=== PATIENT | female | born 1955 | race Caucasian/White ===

== ENCOUNTER → 2023-05-06 08:37 | Outpatient (REF) | payer BC, SELFPAY | LOC: RAD 08:37 | PROVIDERS: ATTENDING PHYSICIAN Family Medicine | DX: I65.23 Occlusion and stenosis of bilateral carotid arteries (principal) | CPT/HCPCS: 93880 ==

== ENCOUNTER → 2023-06-01 17:08 | Outpatient (REF) | payer BC, MEDICARE, SELFPAY | LOC: WDC 17:08 | PROVIDERS: ATTENDING PHYSICIAN Family Medicine | DX: Z12.31 Encounter for screening mammogram for malignant neoplasm of breast (principal) | CPT/HCPCS: 77063; 77067 ==

== ENCOUNTER → 2023-07-21 06:42 | Outpatient (REF) | payer BC, MEDICARE, SELFPAY | LOC: RAD 06:42 | PROVIDERS: ATTENDING PHYSICIAN Specialist; FAMILY PHYSICIAN Family Medicine | DX: E87.6 Hypokalemia (principal) | CPT/HCPCS: 93922 ==

== ENCOUNTER → 2023-10-03 06:41 | Outpatient (REF) | payer BC, SELFPAY | LOC: RAD 06:41 | PROVIDERS: ATTENDING PHYSICIAN Surgery Vascular Surgery; FAMILY PHYSICIAN Family Medicine | DX: I73.9 Peripheral vascular disease, unspecified (principal) | CPT/HCPCS: 93922; 93925; 93978 ==

== ENCOUNTER → 2023-11-16 06:18 | Day surgery (SDC) | payer BC, SELFPAY | LOC: GI 06:18 | PROVIDERS: ATTENDING PHYSICIAN Internal Medicine Gastroenterology; FAMILY PHYSICIAN Family Medicine | DX: D12.0 Benign neoplasm of cecum (principal); D12.3 Benign neoplasm of transverse colon; D12.4 Benign neoplasm of descending colon; K63.5 Polyp of colon; R21 Rash and other nonspecific skin eruption; Z86.010 Personal history of colon polyps; Z98.890 Other specified postprocedural states | CPT/HCPCS: 45385; 88305 ==

== ENCOUNTER → 2023-11-22 11:01 | Outpatient (REF) | payer BC, SELFPAY | LOC: RAD 11:01 | PROVIDERS: ATTENDING PHYSICIAN Family Medicine | DX: M54.16 Radiculopathy, lumbar region (principal) | CPT/HCPCS: 72110 ==

== ENCOUNTER → 2024-01-16 17:01 | Outpatient (REF) | payer BC, SELFPAY | LOC: RAD 17:01 | PROVIDERS: ATTENDING PHYSICIAN Family Medicine | DX: Z87.891 Personal history of nicotine dependence (principal) | CPT/HCPCS: 71271 ==

== ENCOUNTER → 2024-04-30 12:49 | Outpatient (REF) | payer BC, SELFPAY | LOC: RAD 12:49 | PROVIDERS: ATTENDING PHYSICIAN Surgery Vascular Surgery; FAMILY PHYSICIAN Family Medicine | DX: I73.9 Peripheral vascular disease, unspecified (principal) | CPT/HCPCS: 93880; 93922; 93925; 93978 ==

== ENCOUNTER 2024-05-29 07:28 | Outpatient (RCR) | payer BC, SELFPAY ==
[2024-05-29 07:55] VITALS: BP 157/78
[2024-05-29] MEDS: SODIUM BICARBONATE 1150 MEQ IV (08:07)
== END 2024-06-11 23:59 | disposition home or self-care (01) ==
LOC: OID 07:28
PROVIDERS: ATTENDING PHYSICIAN Surgery Vascular Surgery; FAMILY PHYSICIAN Family Medicine
DX: I73.9 Peripheral vascular disease, unspecified (principal); I65.23 Occlusion and stenosis of bilateral carotid arteries; N18.30 Chronic kidney disease, stage 3 unspecified
CPT/HCPCS: 96365; 96366

== ENCOUNTER → 2024-05-29 08:10 | Outpatient (REF) | payer BC, SELFPAY | LOC: RAD 08:10 | PROVIDERS: ATTENDING PHYSICIAN Surgery Vascular Surgery | DX: I65.23 Occlusion and stenosis of bilateral carotid arteries (principal) | CPT/HCPCS: 70496; 70498; Q9967 ==

== ENCOUNTER → 2024-07-11 06:54 | Outpatient (REF) | payer BC, SELFPAY | LOC: RCS 06:54 | PROVIDERS: ATTENDING PHYSICIAN Internal Medicine Cardiovascular Disease; FAMILY PHYSICIAN Family Medicine | DX: R06.02 Shortness of breath (principal) | CPT/HCPCS: 78452; 93017; A9500; J2785 ==

== ENCOUNTER 2024-07-19 06:11 | Inpatient (IN) | payer BC, SELFPAY ==
[2024-07-16 10:20] LABS: % Basophils 1.3 % (0-2); % Eosinophils 2.3 % (0-6); % Immature Granulocytes 0.3 % (0-0.5); % Lymphocytes 25.4 % (20.5-51.1); % Monocytes 7.1 % (1.7-9.3); % Neutrophils 63.6 % (42.2-75.2); Absolute Basophils 0.1 10^3/uL (0-0.2); Absolute Eosinophils 0.1 10^3/uL (0-0.7); Absolute Lymphocytes 1.6 10^3/uL (1.2-3.4); Absolute Monocytes 0.4 10^3/uL (0.1-0.6); Hematocrit 39.4 % (37.0-47.0); Hemoglobin 12.9 g/dL (12.0-16.0); Mean Corp Hgb Conc. 32.7 g/dL (33.0-37.0); Mean Corpuscular Hgb 30.9 pg (27.0-31.0); Mean Corpuscular Volume 94.5 fL (81.0-99.0); Mean Platelet Volume 10.5 fL (7.4-10.4); Nucleated Red Blood Cells % 0 %; Platelet Count 183 10^3/uL (130-400); Red Blood Cell Count 4.17 10^6/uL (4.20-5.40); Red Cell Dist. Width 12.5 % (11.5-14.5); White Blood Cell Count 6.2 10^3/uL (4.8-10.8)
[2024-07-16 10:32] LABS: INR 1.03; PT 13.8 Sec (11.4-14.6)
[2024-07-16 10:33] LABS: APTT 32.5 Sec (23.4-35.0)
[2024-07-16 10:43] LABS: Blood Urea Nitrogen 25 mg/dl (7-17); Calcium 9.9 mg/dl (8.4-10.2); Carbon Dioxide 24 mmol/L (22-30); Chloride 105 mmol/L (98-107); Glucose 90 mg/dl (70-99); Potassium 4.7 mmol/L (3.5-5.1); Sodium 141 mmol/L (135-145); eGFR 49.31
[2024-07-16 13:12] VITALS: BMI 28.4
--- NOTE | 2024-07-17 09:42 | PTCARENOTE ---
Patients 07/16 GFR 49.31- Silvia @ Dr. Ramirez office notified
[2024-07-19] VITALS (10 sets, daily range): BP systolic 89–171; BP diastolic 38–89; BMI 28.5
[2024-07-19] MEDS: BACTROBAN NASAL 1 GRAM NASAL (06:53)
[2024-07-19] MEDS: PERIDEX 0.12% ORAL RINSE 15 ML PO (06:53)
[2024-07-19] MEDS: NSS 500 IV (06:53)
--- NOTE | 2024-07-19 07:12 | W.SUR.PREOP ---
Pre-Operative Surgical Note
-
I have examined this patient prior to the performance of the scheduled procedure.
The patient's condition is unchanged from the time of the current History and
Physical and the patient is able to undergo the scheduled procedure.
--- NOTE | 2024-07-19 09:17 | OR.RPT ---
Operative Report
Operative Report
PROCEDURE DATE: 07/19/2024
Preoperative diagnosis: Critical right carotid artery stenosis, significantly progressed, asymptomatic.
Postoperative diagnosis: Same
Procedure: Right carotid endarterectomy with bovine pericardial patch angioplasty and intraoperative EEG/SSEP monitoring.
Surgeon: Rolly
Maintenance Groundman: JEAN CLAUDE Faulkner and JEAN CLAUDE Williamson, required for all aspects of procedure including assistance with traction/countertraction, following of suture line, assistance with closure.
Complications: None
Anesthesia: General
Indications for procedure:
Progressive carotid stenosis, significantly progressed on interval surveillance imaging. Risk/benefits/alternatives of carotid revascularization fully discussed (right carotid endarterectomy). Patient understood all wished to proceed.
Description of procedure:
Patient was identified brought to the operating room placed on the table in supine position. After the adequate administration of anesthesia and perioperative antibiotics she was prepped and draped in the standard surgical fashion. A standard
preoperative timeout was undertaken and everybody was in agreement the plan. A standard longitudinal incision was made in the right neck that was carried through the skin subcutaneous tissue. Using the electrocautery dissection was carried through
the platysma muscle layer and then alongside the anterior medial border of the sternocleidomastoid muscle. Then using a combination of sharp dissection with the Metzenbaum scissors and electrocautery I dissected along the anterior medial border of
the internal jugular vein. The common facial vein branch was ligated between silk ties and then divided. I then deepened my retraction. The common carotid artery was identified and carefully dissected away from the surrounding structures take
great care to avoid any injury to the structures. A vessel loop was passed around it which was double looped, but not yet tightened. Note the vagus nerve was clearly seen coursing on the anterior lateral surface of the common carotid artery.
Great care was taken to gently dissected this off as the common carotid artery was dissected without actually grasping the nerve but grasping the soft tissues around it. As such it was able to be dissected so that it laid laterally and was clearly
protected from harm's way. I then continued my dissection up the common carotid artery to the bulb staying only on the anterior surface of the carotid artery. Then I carried the dissection up to the internal carotid artery and then to the distal
internal carotid artery. The bifurcation was actually relatively high here as I noted. Therefore, I did extend my incision slightly. I had to ligate another small crossing jugular vein branch between silk ties and then divided. Now I had better
exposure of the distal internal carotid artery. I identified where it was soft and carefully circumferentially dissected the internal carotid artery with minimal mobilization and passed a vessel loop around it. Note the hypoglossal nerve was
clearly visualized and was preserved from harm's way. The patient was given an appropriate dose of heparin 7000 units. Next I dissected the anterior surface of the external carotid artery and superior thyroid branches. These were then carefully
circumferentially dissected with minimal mobilization and vessel loops passed around these which were double looped but not yet tightened. After 3 minutes of heparin circulation time and confirmation of optimization of the blood pressure with my
anesthesiology colleagues, I clamped the distal internal carotid artery where it was soft. There was no immediate EEG or SSEP changes. After 1 minute of test clamp time there was no changes noted. Therefore at this point, the vessel loops on the
external carotid artery and superior thyroid branches were tightened and the common carotid artery was clamped where it was soft proximally. An arteriotomy was made on the common carotid artery with an 11 blade and extended using a Dahl scissor.
I extended the arteriotomy onto the mid to distal internal carotid artery. Bulky mixed but mostly calcified plaque was noted, that nearly completely occluded the artery very difficult to cut through with the Dahl scissor. A [place] was then used to
endarterectomized the plaque. An endarterectomy plane was created, and the plaque was then endarterectomized. Distally I feathered the plaque out to a nice clean endpoint in the distal internal carotid artery. Next I endarterectomized the intima
back to normal intima in the common carotid artery, and the intima was cut flush there. I then grasped the plaque and everted plaque out of the origin of the external carotid artery. The plaque was then sent off for specimen. The origin of the
external carotid artery was carefully visualized and any fine debris were removed with fine forceps. Proximal and distal endpoints were then carefully inspected. Any fine debris was removed with fine forceps, and the intima was noted to be nicely
adherent proximally distally. Next any fine debris were removed throughout the endarterectomy bed with fine forceps. 2 interrupted 7-0 Prolene tacking sutures were placed in the vicinity of the carotid bulb or proximal internal carotid artery.
There was adherent posterior intima here, but there was a slight step relative to the thinner intima adjacent to that and therefore I felt placing a couple tacking sutures was warranted. I then flushed heparinized saline. I was very satisfied.
Then, I used a bovine pericardial patch to sew a patch angioplasty with a running 6-0 Prolene suture. Prior to completing and tying down my suture line, I backbled sequentially each branch and reclamped each branch prior to unclamping the next
branch. I then irrigated with heparinized saline. Then I completed and tied down my suture line. We then restored flow in the common carotid and external carotid arteries. Finally, we released flow in the internal carotid artery. There was
excellent pulsatile flow in all 3 vessels. There was an excellent Doppler signal in the internal carotid artery distal to the patch with a good normal low resistance Doppler signal. There was a good Doppler signal in the external carotid artery as
well. A single 6-0 Prolene bxrqnh-es-yfskw suture was placed along a single bleeding point along the suture line. Protamine was given to reverse the heparin. Hemostasis was completely achieved. We then irrigated and confirmed full hemostasis.
We then closed in layers with 2-0 Vicryl layer to reapproximate the sternocleidomastoid muscle, followed by 3-0 Vicryl platysma muscle running layer, followed by 4-0 Monocryl subcuticular stitch. Dermabond was applied. The patient tolerated
procedure well. She awoke moving all extremities to command with tongue in the midline.
[2024-07-19 09:46] LABS: Hematocrit 34.3 % (37.0-47.0); Hemoglobin 11.6 g/dL (12.0-16.0); Mean Corp Hgb Conc. 33.8 g/dL (33.0-37.0); Mean Corpuscular Hgb 31.6 pg (27.0-31.0); Mean Corpuscular Volume 93.5 fL (81.0-99.0); Platelet Count 172 10^3/uL (130-400); Red Blood Cell Count 3.67 10^6/uL (4.20-5.40); Red Cell Dist. Width 12.4 % (11.5-14.5); White Blood Cell Count 6.1 10^3/uL (4.8-10.8)
[2024-07-19] MEDS: SUBLIMAZE 25 MCG IV (09:51)
[2024-07-19 10:08] LABS: Blood Urea Nitrogen 23 mg/dl (7-17); Calcium 8.9 mg/dl (8.4-10.2); Carbon Dioxide 22 mmol/L (22-30); Chloride 112 mmol/L (98-107); Estimated Creatinine Clearance 51 ml/min; Glucose 114 mg/dl (70-99); Potassium 4.3 mmol/L (3.5-5.1); Sodium 140 mmol/L (135-145); eGFR > 60.00
[2024-07-19] MEDS: NSS 1000 IV ×2 (11:26→22:00)
[2024-07-19] MEDS: ROXICODONE 5 MG PO (11:39)
--- NOTE | 2024-07-19 11:57 | CON.INTV ---
Consultation
Consultation Request
Date/Time Consultation Requested: 07/19/2024
Date/Time Consultation Performed: 07/19/2024
Medical History
-
Chief Complaint: Progressive carotid disease
History of Present Illness:
Patient is a very pleasant 69-year-old female with longstanding history of heavy smoking, quit 8 years ago, who follows up with the vascular surgery clinic for carotid artery stenosis. She was noted to have progressive increase in right carotid
velocities suggestive of worsening stenosis. She was electively admitted to the hospital today for right carotid endarterectomy. Postsurgery she was brought to the ICU and licensing worker consultation was requested for further input.
Past medical history:
Anxiety with panic attacks in the past
Depression
Hypertension and hyperlipidemia
History of heavy smoking, quit in 2007
Emphysema noted on low-dose CT scan
Chronic kidney disease, stable
Social history. Patient smoked 1 to 3 packs/day from age 18 [address] up to age 61. She has not smoked in the last 8 years.
Family history. Noncontributory
Allergies / Home Medications
Allergies
Allergy/AdvReac Type Severity Reaction Status Date / Time
epinephrine [Epinephrine] AdvReac PANIC Verified 07/19/24 06:33
REACTION
Home Medications
�Medication �Instructions �Recorded �Confirmed �Last Taken �Type
rosuvastatin 40 mg tablet (Crestor) 40 mg PO DAILY@1100 High 10/03/19 07/19/24 07/18/24 13:30 History
cholesterol
clonidine HCl 0.1 mg tablet 0.1 mg PO BID PRN Hypertension 04/18/22 07/19/24 07/17/24 19:00 History
propranolol 120 mg capsule,24 120 mg PO DAILY@1100 Blood pressure 04/18/22 07/19/24 07/18/24 13:30 History
hr,extended release (Inderal LA)
doxepin 50 mg capsule 50 mg PO DAILY 07/11/24 07/19/24 07/18/24 05:30 History
doxepin 50 mg capsule 100 mg PO HS 07/11/24 07/19/24 07/18/24 22:30 History
levothyroxine 25 mcg tablet 25 mcg PO DAILY@0500 07/11/24 07/19/24 07/18/24 04:00 History
lnxbsytc-ueqf-kzxt 8 mg-folic 400 1 tab PO DAILY 07/11/24 07/19/24 07/14/24 08:00 History
mcg-K 50 mcg-lutein 300 mcg tablet
(Centrum Silver Women)
Review of Systems
-
Hematologic/Lymphatic: Other (All 14 systems reviewed and negative except as stated above in the history of present illness.)
Vitals / Labs / Diagnostic Testing
Vital Signs
Temp Pulse Resp BP Pulse Ox
97.2 F 54 18 96/46 97
07/19/24 10:30 07/19/24 11:00 07/19/24 11:00 07/19/24 10:32 07/19/24 10:45
Lab Data
07/19/24 09:34
07/19/24 09:34
Diagnostic Testing:
Physical Exam
-
HEENT: Normocephalic
Cardiovascular: S1/S2
Respiratory: Clear and Non-Labored Respirations
GI: Soft and Non Distended
Neurology: Awake and Alert
Skin: Warm
General: Comfortable
Assessment
-
Patient with history of progressive carotid artery stenosis s/p Right carotid endarterectomy with bovine pericardial patch angioplasty by vascular surgery service, POD #0
Continue observation following procedure
Follow neurovascular checks per protocol
ASA, Propranolol and Rosuvastatin.
Follow BP monitoring and parameters as set by primary team
Sinus bradycardia noted on EKG post-op, since resolved. Heart rate in 80's now. Lower Propranolol dose by 50%.
Pain control per protocol
RASS goal 0
H/o heavy smoking, quit 8 years ago. Emphysema noted on LDCT, no symptoms and has not been on any inhalers. PRN Albuterol added. Recommend outpatient follow-up with pulmonary clinic.
CXR reviewed indicating no acute disease
Encouraged IS
Diet advancement per protocol
Aspiration precautions
Creat at baseline, follow UO
Critical I/Os
Void trials
Replete electrolytes as needed
No signs/symptoms suspicious for infectious etiology at this time
Will observe off antibiotics for now
Follow temperatures/CBC
DVT prophylaxis: heparin q 12
Encouraged OOB/PT/OT/ambulation once cleared by surgical team
Critical Care time 61 mins -- The patient is admitted for acute critical illness for the treatment of vital organ failure and/or prevention of further life-threatening conditions. Total care includes time spent in review of history, physical exam,
medications, hemodynamic/ventilator parameters, laboratory data, imaging and discussion with house staff, pharmacy, respiratory therapy, hydraulic tester, and nursing.
Data:
CXR 07/2024: unremarkable
CTA Head/Neck 05/2024: 1. Calcified plaque within the right carotid bulb, measurements consistent with 76% stenosis. This correlates with findings from recent prior carotid ultrasound.
2. Ossified left carotid bulb plaque, measurements consistent with 65% stenosis. This also correlates with ultrasound findings
LDCT 01/2024: Apical Paraseptal Emphysema, no suspicious pulmonary nodules
PFT 2018. Normal Spirometry, Normal lung volumes, DLCO reduced at 61% of predicted, 13.47
Sestamibi Stress test 06/2024: Negative for ischemia
ECHO 04/2022: Normal left ventricular chamber size. Normal left ventricular systolic
function. Left ventricular ejection fraction is 55%. Normal regional wall
motion. Normal left ventricular wall thickness. Normal diastolic function.
Trileaflet aortic valve. Aortic valve opens normally. Aortic sclerosis
(especially noncoronary cusp )without stenosis. No aortic regurgitation is
seen.
[2024-07-19] MEDS: CRESTOR 40 MG PO (13:08)
[2024-07-19] MEDS: ZOFRAN 4 MG IV (13:08)
[2024-07-19] MEDS: TYLENOL 650 MG PO (16:13)
[2024-07-19] MEDS: INDERAL LA 60 MG PO (16:38)
--- NOTE | 2024-07-19 19:17 | PTCARENOTE ---
11:00, received patient from PACU, A&Ox4, neuro checks intact, on RA, SB in the high 40s, left radial art line, right neck surgical site is clean and dry, pain reassessed and intervened.
17:30, patient is unable to urinate, bladder scanned and straight cathed.
[2024-07-19] MEDS: SINEQUAN 100 MG PO (19:45)
[2024-07-19] MEDS: HEPARIN 5000 UNITS SC (19:45)
--- NOTE | 2024-07-19 20:10 | PTCARENOTE ---
Rec'd pt anxious in bed with at bedside. GCS 15, DESAI 5/5, PERRLA 3-4. No c/o pain. Surgical incision approximated, slight ecchymosis noted. Pt refused ice pack to neck. Afebrile, NSR on monitor. BP goals met at this time. Pt BP quickly rises
via Art line with conversation/anxiety. Pt encouraged to keep calm in order to keep BP within desired range. Pt agreeable. NS @80ml/hr. Pulses palpable, no edema. Room air, clear. Tolerating low cholesterol diet, ate 100% dinner. Having difficulty
urinating on bedrest. Unable to void on bedpan. Requested purewick but unable to urinate, saying it is 'mind over matter'. Will bladder scan/straight cath as necessary. Pt agreeable. Will monitor.
[2024-07-20] VITALS (11 sets, daily range): BP systolic 123–163; BP diastolic 54–94
--- NOTE | 2024-07-20 00:30 | PTCARENOTE ---
BP greater than desired value 2/2 anxiety related to bladder/urinary retention and nervous to be kept in hospital longer than expected due to BP. Patino catheter placed, draining clear yellow urine and pt calmer. Plan to remove once bedrest order
lifted, as per ICU MATH INTERVENTIONIST. 1mg Ativan given for anxiety. BP now 115/52 and pt resting comfortably. Will continue to provide emotional support and monitor closely.
[2024-07-20] MEDS: ATIVAN 1 MG IV (00:38)
[2024-07-20] MEDS: NSS (PRESERVATIVE FREE) 0.5 ML IV (01:24)
--- NOTE | 2024-07-20 04:00 | PTCARENOTE ---
GCS 15 no change in previous assessment. AM labs sent and pending.
[2024-07-20] MEDS: SYNTHROID 25 MCG PO (04:48)
[2024-07-20 05:15] LABS: Hematocrit 32.5 % (37.0-47.0); Hemoglobin 10.7 g/dL (12.0-16.0); Mean Corp Hgb Conc. 32.9 g/dL (33.0-37.0); Mean Corpuscular Hgb 31.1 pg (27.0-31.0); Mean Corpuscular Volume 94.5 fL (81.0-99.0); Mean Platelet Volume 10.2 fL (7.4-10.4); Platelet Count 141 10^3/uL (130-400); Red Blood Cell Count 3.44 10^6/uL (4.20-5.40); Red Cell Dist. Width 12.7 % (11.5-14.5); White Blood Cell Count 10.9 10^3/uL (4.8-10.8)
[2024-07-20 05:25] LABS: INR 0.94
[2024-07-20 05:26] LABS: APTT 28.9 Sec (23.4-35.0)
[2024-07-20 05:37] LABS: Blood Urea Nitrogen 18 mg/dl (7-17); Calcium 8.5 mg/dl (8.4-10.2); Carbon Dioxide 19 mmol/L (22-30); Chloride 114 mmol/L (98-107); Estimated Creatinine Clearance 51 ml/min; Glucose 109 mg/dl (70-99); Potassium 4.2 mmol/L (3.5-5.1); Sodium 138 mmol/L (135-145); eGFR > 60.00
[2024-07-20] MEDS: HEPARIN 5000 UNITS SC (07:23)
[2024-07-20] MEDS: LOW STRENGTH ASPIRIN 81 MG PO (07:25)
[2024-07-20] MEDS: THERAGRAN 1 TABLET PO (07:25)
[2024-07-20] MEDS: SINEQUAN 50 MG PO (07:25)
--- NOTE | 2024-07-20 07:31 | W.PN.VS ---
Addendum entered and electronically signed by Ke Lofton MD 07/20/24 08:04:
Seen and examined with JEAN CLAUDE Williamson. Agree with findings as noted below. Patino catheter placed due to urinary retention. Otherwise no major issues. Right neck incision clean dry and intact. No hematoma. Neurologically no focal deficits, moves all
extremities well. Tongue midline. Plan/as discussed and noted below.
Original Note:
Today's Communication / Plan
-
Seen and assessed with Dr. Lofton
Assessment/Plan
-
POD 1 right CEA
Plan:
�DC A-line
�DC Patino
�DC IV fluids
�Out of bed/ambulate
�P.o. medications
�Likely can DC later today if voids
Subjective Data
-
Date of Service: July 20, 2024
Patient seen bedside this a.m. with Dr. Lofton. Patient had Patino placed overnight for retention. No other events overnight. Denies pain.
Objective Data
-
Vital Signs
Temp Pulse Resp BP Pulse Ox
98.1 F 72 17 161/49 95
07/19/24 23:15 07/20/24 05:45 07/20/24 05:45 07/19/24 16:38 07/20/24 05:45
Intake and Output
07/19/24 07/20/24 07/21/24
06:59 06:59 06:59
Intake Total 2670 / 2670
Output Total 2350 / 2350
Balance 320 / 320
Intake:
Oral fluids 810 / 810
IV fluids (Total) 1859 / 1859
normal saline 1859 / 1859
Output:
Urine, Patino 1800 / 1800
Urine, Voided 0 / 0
Straight cath output 550 / 550
Lab Results
07/20/24 04:55
07/20/24 04:55
Calcium 8.5 mg/dl (8.4-10.2) 07/20/24 04:55
Physical Exam
-
AAO x 3
No tachypnea on room air
No tachycardia
Abdomen soft, nontender
Neck site clean, dry, intact, soft, flat
Follows commands, moves all extremities
Tongue midline
[2024-07-20] MEDS: INDERAL LA 120 MG PO (08:27)
[2024-07-20] MEDS: CRESTOR 40 MG PO (11:06)
--- NOTE | 2024-07-20 11:20 | PTCARENOTE ---
07:00, continued care from third shift lieutenant. Patient is A&Ox4, mild agitation, on RA, SBP fluctuates between 160 and 175, Left radial art line present, adams is in place.
08:30, patient resumed home dose propranolol 120mg ER, discontinued art line and adams.
10:30, patient is OOB to chair and able to walk to the bathroom with 1 person assistance.
--- NOTE | 2024-07-20 11:53 | W.DS.TRANS ---
DC Summary - Pigment Weigher
-
Discharge Instructions:
Discharge Diagnosis/Procedures Right carotid endarterectomy
Diet As tolerated
Activity No strenuous activity
Driving Restrictions Not until seen by your Dr
Bathing Restrictions OK to Shower
Instructions:
Stand-Alone Forms: Vascular Surg Discharge Instr
Changes to Home Medications: Yes
Discharge Medications:
DC Medications w/original date entered in [facility]
rosuvastatin 40 mg tablet (Crestor) 40 mg PO DAILY@1100 High cholesterol 10/03/19
clonidine HCl 0.1 mg tablet 0.1 mg PO BID PRN Hypertension 04/18/22
propranolol 120 mg capsule,24 hr,extended release (Inderal LA) 120 mg PO DAILY@1100 Blood pressure 04/18/22
doxepin 50 mg capsule 50 mg PO DAILY Mental Health/Anxiety 07/11/24
doxepin 50 mg capsule 100 mg PO HS Mental Health/Anxiety 07/11/24
levothyroxine 25 mcg tablet 25 mcg PO DAILY@0500 Thyroid 07/11/24
ccumjuxm-sicv-wbnl 8 mg-folic 400 mcg-K 50 mcg-lutein 300 mcg tablet (Centrum Silver Women) 1 tab PO DAILY Supplement 07/11/24
aspirin 81 mg chewable tablet 81 mg PO DAILY #120 tabs 07/20/24
Home Medication Changes
Added aspirin 81 mg p.o. daily
Pending Results: No
--- NOTE | 2024-07-20 12:00 | CM ---
Reviewed the chart notes and spoke with the patient at the bedside. IMM reviewed. The patient resides with spouse in a two story home with three steps to enter. Patient reports no DME/VN/SNF. Confirmed pharmacy of choice is the [facility]
[place]. CM continues to be available to patient/family and is monitoring medical plan for needs at discharge.
Plan: Discharge to home today. Patient's spouse will provide transportation.
--- NOTE | 2024-07-20 13:21 | PTCARENOTE ---
Provided discharge teaching to the patient and the spouse, all questions answered. Patient took all personal belongings home.
--- NOTE | 2024-07-20 14:23 | PTCARENOTE ---
Called patient's spouse Grady to apple picker glasses at earliest convenience. Glasses are labeled and available at unit [facility] front desk attendant.
== END 2024-07-20 13:42 | disposition home or self-care (01) | DRG 39 ==
LOC: ICU 06:11
PROVIDERS: Nurse Practitioner; ADMITTING PHYSICIAN Surgery Vascular Surgery; CONSULT PHYSICIAN Internal Medicine; FAMILY PHYSICIAN Family Medicine
PROC: 03UK0KZ Supplement Right Internal Carotid Artery with Nonautologous Tissue Substitute, Open Approach (ICD-10-PCS; 2024-07-19)
PROC: 03CK0ZZ Extirpation of Matter from Right Internal Carotid Artery, Open Approach (ICD-10-PCS; 2024-07-19)
DX: I65.21 Occlusion and stenosis of right carotid artery (principal); F41.0 Panic disorder [episodic paroxysmal anxiety]; F32.A Depression, unspecified; I12.9 Hypertensive chronic kidney disease with stage 1 through stage 4 chronic kidney disease, or unspecified chronic kidney disease; E78.5 Hyperlipidemia, unspecified; J43.9 Emphysema, unspecified; N18.9 Chronic kidney disease, unspecified; R33.9 Retention of urine, unspecified; Z87.891 Personal history of nicotine dependence; Z88.8 Allergy status to other drugs, medicaments and biological substances; Z79.890 Hormone replacement therapy
CPT/HCPCS: 88304; 88311; 35301; 36415; 71046; 80048; 85025; 85027; 85610; 85730; 86850; 86900; 86901; 93005; 95938; 95941; 95955

== ENCOUNTER → 2024-08-20 13:58 | Outpatient (REF) | payer BC, SELFPAY | LOC: RAD 13:58 | PROVIDERS: ATTENDING PHYSICIAN Registered Nurse; FAMILY PHYSICIAN Family Medicine | DX: I65.23 Occlusion and stenosis of bilateral carotid arteries (principal) | CPT/HCPCS: 93880 ==

== ENCOUNTER → 2024-11-27 14:35 | Outpatient (REF) | payer BC, SELFPAY | LOC: WDC 14:35 | PROVIDERS: ATTENDING PHYSICIAN Family Medicine | DX: Z12.31 Encounter for screening mammogram for malignant neoplasm of breast (principal) | CPT/HCPCS: 77063; 77067 ==

== ENCOUNTER → 2024-12-21 09:51 | Outpatient (REF) | payer BC, SELFPAY | LOC: RAD 09:51 | PROVIDERS: ATTENDING PHYSICIAN Nurse Practitioner Adult Health; FAMILY PHYSICIAN Family Medicine | DX: D69.6 Thrombocytopenia, unspecified (principal) | CPT/HCPCS: 76700 ==

== ENCOUNTER → 2025-02-13 13:06 | Outpatient (REF) | payer BC, SELFPAY | LOC: RAD 13:06 | PROVIDERS: ATTENDING PHYSICIAN Surgery Vascular Surgery; FAMILY PHYSICIAN Family Medicine | DX: I73.9 Peripheral vascular disease, unspecified (principal) | CPT/HCPCS: 93880; 93922 ==